=== PATIENT | male | born 1960 | race Caucasian/White ===

== ENCOUNTER → 2016-07-25 | Outpatient (CLI) | payer BC ==
[~2016-07-25] MED LIST: Gadobenate Dimeglumine 529 MG/ML 20 ML SDV IVPUSH STA
--- NOTE | 2016-07-29 10:14 | MR ---
EXAM DATE: 07/25/16 PATIENT'S AGE: 56 Patient: DNAIEL QUINONEZ Facility: [place], [place] Site . Site : 1960 Study: MRI Head W/ and W/O Cont [id number]/26/2017 7:00:07 PM Ordering Physician: Vadim Kelsey Final Report: Indication: Visual disturbance Technique: MRI Head: Performed before and after IV gadolinium. MRI Orbits: Performed before and after IV gadolinium. Contrast: cc Gadavist Comparison: None are available. 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 These are frequently asymptomatic and incidental. No additional abnormal contrast enhancement involving the brain parenchyma, meninges, calvarium or skull base. No evidence for recent or remote infarct or hemorrhage. No intracranial mass effect. No ventricular obstruction. No signal changes in the brain parenchyma. The corpus callosum has a normal MR appearance. Grossly normal flow voids are maintained in the directly imaged intracranial vascular structures. The craniovertebral junction is unremarkable, with a patent foramen magnum. Both temporal bones are clear. MRI Orbits: No evidence for mass lesion, infiltrating T2 signal abnormality or pathologic IV gadolinium enhancement involving either orbit. The globes, optic nerve complexes, extra-ocular muscle cones and lacrimal glands are symmetric and unremarkable. There is slight septal membrane thickening bilaterally in the adjacent ethmoid air cells. Retention cyst along the floor of left maxillary antrum. Impression: MRI Head: 1. 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 2. The intracranial contents are otherwise unremarkable. MRI Orbits: 1. No orbital abnormality identified. 2. Slight ethmoid sinus inflammatory change. Dictated by Tonny Snyder MD @ Jul 26 2016 6:34AM (Electronic Signature) Report Signed by Proxy. [facility]
--- NOTE | 2016-07-29 10:15 | MR ---
EXAM DATE: 07/25/16 PATIENT'S AGE: 56 Patient: DANIEL QUINONEZ Facility: [place], [place] Site . Site : 1960 Study: MRI Orbits W/ and W/O Cont [id number]/26/2017 7:00:56 PM Ordering Physician: Vadim Kelsey Final Report: Indication: Visual disturbance Technique: MRI Head: Performed before and after IV gadolinium. MRI Orbits: Performed before and after IV gadolinium. Contrast: cc Gadavist Comparison: None are available. 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 These are frequently asymptomatic and incidental. No additional abnormal contrast enhancement involving the brain parenchyma, meninges, calvarium or skull base. No evidence for recent or remote infarct or hemorrhage. No intracranial mass effect. No ventricular obstruction. No signal changes in the brain parenchyma. The corpus callosum has a normal MR appearance. Grossly normal flow voids are maintained in the directly imaged intracranial vascular structures. The craniovertebral junction is unremarkable, with a patent foramen magnum. Both temporal bones are clear. MRI Orbits: No evidence for mass lesion, infiltrating T2 signal abnormality or pathologic IV gadolinium enhancement involving either orbit. The globes, optic nerve complexes, extra-ocular muscle cones and lacrimal glands are symmetric and unremarkable. There is slight septal membrane thickening bilaterally in the adjacent ethmoid air cells. Retention cyst along the floor of left maxillary antrum. Impression: MRI Head: 1. 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 2. The intracranial contents are otherwise unremarkable. MRI Orbits: No orbital abnormality identified. Slight ethmoid sinus inflammatory change. Dictated by Tonny Snyder MD @ Jul 26 2016 6:45AM (Electronic Signature) Report Signed by Proxy. [facility]
== END ==
LOC: MW.MRI 13:46
PROVIDERS: ATTEND Otolaryngology
DX: H53.9 Unspecified visual disturbance (principal)
CPT/HCPCS: 70542; 70553; A9577